=== PATIENT | female | born 1955 | race Caucasian/White ===

== ENCOUNTER 2016-07-15 10:52 | Emergency (ER) | payer OTHER ==
[~2016-07-15] VITALS: Ht 160 cm; Wt 68.0 kg
[2016-07-15] MEDS ORDERED: CARV-39 PO (11:36)
[2016-07-15] MEDS ORDERED: OLAN2.5T5 PO (11:36)
[2016-07-15] MEDS ORDERED: TRAZ100T15 PO (11:36)
[2016-07-15] MEDS ORDERED: VENL37.52 PO (11:36)
[2016-07-15] MEDS ORDERED: CLON-365 PO (11:36)
[2016-07-15] MEDS ORDERED: ASPI-496 PO (11:38)
[2016-07-15] MEDS ORDERED: ATOR40TA78 PO (11:38)
[2016-07-15 12:09] LABS: BLOOD UREA NITROGEN 8 mg/dL (7-18)
[2016-07-15 12:12] LABS: ASPARTATE AMINO TRANSFERASE 39 U/L (15-37)
[2016-07-15 12:43] VITALS: BP 127/82
== END 2016-07-15 12:46 | disposition home or self-care (01) ==
LOC: ED 12:40
DX: J15.9 Unspecified bacterial pneumonia (principal)
CPT/HCPCS: 36415; 71010; 80053; 85025

== ENCOUNTER 2016-07-20 13:31 | Emergency (ER) | payer OTHER ==
[~2016-07-20] VITALS: Ht 160 cm; Wt 66.0 kg
[~2016-07-20 13:31] MED LIST: ASPI-496 PO; ATOR40TA78 PO; CARV-39 PO; CLON-365 PO; OLAN2.5T5 PO; TRAZ100T15 PO; VENL37.52 PO
[2016-07-20 13:34] VITALS: BP_DIAS 84
[2016-07-20] MEDS ORDERED: LORazepam 1MG TABLET ONE (14:14)
[2016-07-20] MEDS ORDERED: PLEASE ENTER ALLERGIES MC SCH ×2 (14:30)
[2016-07-20] MEDS ORDERED: LORazepam 1MG TABLET PO ONE (14:30)
[2016-07-20 15:05] VITALS: BP_SYST 124
== END 2016-07-20 15:07 | disposition home or self-care (01) ==
LOC: ED 15:05
DX: F41.1 Generalized anxiety disorder (principal); F43.12 Post-traumatic stress disorder, chronic; F17.200 Nicotine dependence, unspecified, uncomplicated; X58.XXXA Exposure to other specified factors, initial encounter; Y93.89 Activity, other specified; Y92.89 Other specified places as the place of occurrence of the external cause; Y99.9 Unspecified external cause status
CPT/HCPCS: 99284

== ENCOUNTER 2016-08-17 17:56 | Emergency (ER) | payer OTHER ==
[~2016-08-17] VITALS: Ht 160 cm; Wt 65.0 kg
[~2016-08-17 17:56] MED LIST changes: +ATOR20TA9 PO; +OXYC1TAB9 PO; +QUET100T4 PO
[2016-08-17] MEDS ORDERED: DIAZEPAM 5 MG TABLET ONE (18:26)
[2016-08-17] MEDS ORDERED: KETOROLAC 30 MG/1 ML ONE (18:26)
[2016-08-17] MEDS ORDERED: KETOROLAC 60 MG/2 ML IM ONE (18:30)
[2016-08-17] MEDS ORDERED: KETOROLAC 30 MG/1 ML IM ONE (18:30)
[2016-08-17] MEDS ORDERED: DIAZEPAM 5 MG TABLET PO ONE (18:30)
[2016-08-17 18:41] VITALS: BP 124/74
== END 2016-08-17 19:14 | disposition home or self-care (01) ==
LOC: ED 18:18
DX: M94.0 Chondrocostal junction syndrome [Tietze] (principal); G44.201 Tension-type headache, unspecified, intractable; M54.2 Cervicalgia; I10 Essential (primary) hypertension; E78.5 Hyperlipidemia, unspecified; I25.10 Atherosclerotic heart disease of native coronary artery without angina pectoris; F17.200 Nicotine dependence, unspecified, uncomplicated
CPT/HCPCS: 96372; 99283; J1885

== ENCOUNTER 2016-08-22 20:48 | Emergency (ER) | payer OTHER ==
[~2016-08-22] VITALS: Ht 160 cm; Wt 68.0 kg
[2016-08-22] MEDS ORDERED: ZOLP10TA PO (21:06)
[2016-08-22] MEDS ORDERED: GABA300C10 PO (21:06)
[2016-08-22] MEDS ORDERED: OLAN20TA3 PO (21:06)
[2016-08-22] MEDS ORDERED: KETOROLAC 30 MG/1 ML IVPush ONE (21:30)
[2016-08-22] MEDS ORDERED: MORPHINE SULFATE 4 MG/ML, 1ML IVPush PRN (21:30)
[2016-08-22] MEDS ORDERED: DEXAMETHASONE 4 MG/ML, 1ML IVPush ONE (21:30)
[2016-08-22] MEDS ORDERED: METOCLOPRAMIDE 5 MG/ML, 2ML IVPush ONE (21:30)
[2016-08-22] MEDS ORDERED: DIPHENHYDRAMINE 50 MG/ML, 1ML IVPush ONE (21:30)
[2016-08-22] MEDS ORDERED: SODIUM CHLORIDE 0.9% 1,000ML IVBOLUS ONE (21:30)
[2016-08-22] MEDS ORDERED: KETOROLAC 30 MG/1 ML ONE ×2 (21:39→22:04)
[2016-08-22] MEDS ORDERED: METOCLOPRAMIDE 5 MG/ML, 2ML ONE (21:39)
[2016-08-22] MEDS ORDERED: DIPHENHYDRAMINE 50 MG/ML, 1ML ONE (21:39)
[2016-08-22] MEDS ORDERED: DEXAMETHASONE 4 MG/ML, 1ML ONE ×2 (21:39→21:47)
[2016-08-22] MEDS ORDERED: MORPHINE SULFATE 4 MG/ML, 1ML ONE (21:47)
[2016-08-22 23:05] VITALS: BP 159/97
== END 2016-08-22 23:06 | disposition home or self-care (01) ==
LOC: ED 21:51
DX: G43.019 Migraine without aura, intractable, without status migrainosus (principal); I25.2 Old myocardial infarction; I25.10 Atherosclerotic heart disease of native coronary artery without angina pectoris; I10 Essential (primary) hypertension
CPT/HCPCS: 36415; 84484; 93005; 96361; 96374; 96375; 99285; J1100; J1885; J2765; J7030

== ENCOUNTER 2016-11-23 15:25 | Emergency (ER) | payer OTHER, MEDICAID ==
[~2016-11-23] VITALS: Ht 160 cm; Wt 73.6 kg
[~2016-11-23 15:25] MED LIST changes: +GABA300C10 PO; +OLAN2.5T10 PO; -OLAN2.5T5 PO; +OLAN20TA3 PO; +ZOLP10TA PO
[2016-11-23 15:26] VITALS: BP 151/98
[2016-11-23] MEDS ORDERED: FLUORESCEIN OPHTHALMIC 1 MG STRIP ONE (15:41)
[2016-11-23] MEDS ORDERED: PROPARACAINE OPHTH 0.5%, 15ML ONE (15:41)
== END 2016-11-23 16:00 | disposition home or self-care (01) ==
LOC: ED 15:45
DX: S05.02XA Injury of conjunctiva and corneal abrasion without foreign body, left eye, initial encounter (principal); H15.002 Unspecified scleritis, left eye; I10 Essential (primary) hypertension; X58.XXXA Exposure to other specified factors, initial encounter; Y93.89 Activity, other specified; Y92.89 Other specified places as the place of occurrence of the external cause; Y99.9 Unspecified external cause status
CPT/HCPCS: 99283

== ENCOUNTER 2017-05-17 13:36 | Emergency (ER) | payer OTHER, MEDICAID ==
[~2017-05-17] VITALS: Ht 160 cm; Wt 78.9 kg
[2017-05-17 13:40] VITALS: BP 138/87
== END 2017-05-17 14:34 | disposition home or self-care (01) ==
LOC: ED 14:28
DX: G89.29 Other chronic pain (principal); M54.5 Low back pain; I10 Essential (primary) hypertension; I25.10 Atherosclerotic heart disease of native coronary artery without angina pectoris; F43.10 Post-traumatic stress disorder, unspecified; F17.200 Nicotine dependence, unspecified, uncomplicated; I25.2 Old myocardial infarction
CPT/HCPCS: 99283

== ENCOUNTER 2017-05-25 16:03 | Emergency (ER) | payer OTHER, MEDICAID ==
[~2017-05-25] VITALS: Ht 160 cm; Wt 80.0 kg
[2017-05-25 16:33] LABS: BASOPHILS # (AUTO) 0.04 x10^3/uL (0-0.1); BASOPHILS % (AUTO) 0 % (0-1); EOSINOPHILS # (AUTO) 0.42 x10^3/uL (0-0.4); EOSINOPHILS % (AUTO) 4 % (1-7); LYMPHOCYTES # (AUTO) 3.08 x10^3/uL (1-3.4); LYMPHOCYTES % (AUTO) 28 % (22-44); MD NO; MEAN CORPUSCULAR HEMOGLOBIN 31.8 pg (27.0-34.8); MEAN CORPUSCULAR HGB CONC 33.8 g/dL (32.4-35.8); MEAN CORPUSCULAR VOLUME 93.9 fL (80-100); MEAN PLATELET VOLUME 9.6 fL (7.4-10.4); MONOCYTES # (AUTO) 0.69 x10^3/uL (0.2-0.8); MONOCYTES % (AUTO) 6 % (2-9); NEUTROPHILS % (AUTO) 61 % (42-75); PLATELET COUNT 249 x10^3/uL (130-400); RED BLOOD COUNT 4.86 x10^6/uL (3.82-5.3); RED CELL DISTRIBUTION WIDTH 13.1 % (9.6-15.2)
[2017-05-25 16:45] LABS: ALBUMIN 3.4 g/dL (3.4-5.0); ANION GAP 5 mmol/L (5-15); CALCIUM 8.8 mg/dL (8.5-10.1); CHLORIDE 108 mmol/L (98-107); CREATININE 1.09 mg/dL (0.55-1.02)
[2017-05-25 16:49] LABS: TROPONIN I < 0.015 ng/mL (0.000-0.045)
[2017-05-25 18:30] VITALS: BP 124/82
== END 2017-05-25 18:44 | disposition home or self-care (01) ==
LOC: ED 18:10
DX: J20.8 Acute bronchitis due to other specified organisms (principal); I10 Essential (primary) hypertension; F43.10 Post-traumatic stress disorder, unspecified; E78.5 Hyperlipidemia, unspecified; I25.2 Old myocardial infarction; Z87.01 Personal history of pneumonia (recurrent)
CPT/HCPCS: 36415; 71046; 80048; 82040; 83605; 84484; 85025; 93005; 99285

== ENCOUNTER 2017-08-29 13:15 | Emergency (ER) | payer OTHER, MEDICAID ==
[~2017-08-29] VITALS: Ht 160 cm; Wt 78.6 kg
[~2017-08-29 13:15] MED LIST changes: +OLAN20TA7 PO
[2017-08-29 13:17] VITALS: BP 116/79
[2017-08-29] MEDS ORDERED: DIPH,PERTUSS(ACELL),TET VAC/PF 0.5 ML IM-VACC ONE ×2 (14:00→15:29)
[2017-08-29] MEDS ORDERED: BACITRACIN ZINC OINT 500U/GM, 0.9 GM ONE (14:08)
[2017-08-29] MEDS ORDERED: ACETAMINOPHEN 500 MG TABLET ONE (15:29)
[2017-08-29] MEDS ORDERED: ACETAMINOPHEN 500 MG TABLET PO ONE (15:30)
== END 2017-08-29 16:03 | disposition home or self-care (01) ==
LOC: ED 15:30
DX: S39.012A Strain of muscle, fascia and tendon of lower back, initial encounter (principal); S80.212A Abrasion, left knee, initial encounter; S80.211A Abrasion, right knee, initial encounter; W01.0XXA Fall on same level from slipping, tripping and stumbling without subsequent striking against object, initial encounter; Y93.89 Activity, other specified; Y92.009 Unspecified place in unspecified non-institutional (private) residence as the place of occurrence of the external cause; Y99.8 Other external cause status
CPT/HCPCS: 72110; 90471; 90715; 99284

== ENCOUNTER 2017-12-27 13:02 | Emergency (ER) | payer OTHER, MEDICAID ==
[~2017-12-27] VITALS: Ht 160 cm; Wt 79.0 kg
[~2017-12-27 13:02] MED LIST changes: -CLON-365 PO; +CLON1TAB11 PO; +OXYC-432 PO; -OXYC1TAB9 PO; +TRAZ-137 PO; -TRAZ100T15 PO
[2017-12-27] MEDS ORDERED: ALBUTEROL/IPRATROPIUM 2.5MG/0.5MG, 3 ML ONE (13:45)
[2017-12-27] MEDS ORDERED: ALBUTEROL/IPRATROPIUM 2.5MG/0.5MG, 3 ML NPPB ONE (14:00)
[2017-12-27 14:18] LABS: BASOPHILS # (AUTO) 0.01 x10^3/uL (0-0.1); BASOPHILS % (AUTO) 0 % (0-1); EOSINOPHILS % (AUTO) 2 % (1-7); LYMPHOCYTES # (AUTO) 1.08 x10^3/uL (1-3.4); LYMPHOCYTES % (AUTO) 11 % (22-44); MD NO; MEAN CORPUSCULAR HEMOGLOBIN 31.8 pg (27.0-34.8); MEAN CORPUSCULAR HGB CONC 33.9 g/dL (32.4-35.8); MEAN CORPUSCULAR VOLUME 93.9 fL (80-100); MEAN PLATELET VOLUME 10.4 fL (7.4-10.4); MONOCYTES # (AUTO) 0.64 x10^3/uL (0.2-0.8); MONOCYTES % (AUTO) 7 % (2-9); NEUTROPHILS # (AUTO) 7.78 x10^3/uL (1.8-6.8); NEUTROPHILS % (AUTO) 80 % (42-75); PLATELET COUNT 184 x10^3/uL (130-400); RED BLOOD COUNT 5.42 x10^6/uL (3.82-5.3); RED CELL DISTRIBUTION WIDTH 13.5 % (9.6-15.2)
[2017-12-27 14:26] LABS: ALBUMIN 3.8 g/dL (3.4-5.0); ANION GAP 7 mmol/L (5-15); CALCIUM 9.5 mg/dL (8.5-10.1); CHLORIDE 107 mmol/L (98-107)
[2017-12-27 14:29] LABS: D-DIMER 0.25 ug/mlFEU (0.00-0.52); INTERNATIONAL NORMALIZED RATIO 1.03 (0.93-1.1); PROTHROMBIN TIME 10.6 Seconds (9.6-11.5)
[2017-12-27 14:30] LABS: TROPONIN I < 0.015 ng/mL (0.000-0.045)
[2017-12-27 15:25] VITALS: BP 186/98
== END 2017-12-27 15:27 | disposition home or self-care (01) ==
LOC: ED 15:20
DX: J98.01 Acute bronchospasm (principal); J06.9 Acute upper respiratory infection, unspecified; F17.210 Nicotine dependence, cigarettes, uncomplicated; I10 Essential (primary) hypertension; E78.5 Hyperlipidemia, unspecified; I25.2 Old myocardial infarction; I25.10 Atherosclerotic heart disease of native coronary artery without angina pectoris; F43.10 Post-traumatic stress disorder, unspecified; R79.1 Abnormal coagulation profile
CPT/HCPCS: 36415; 71046; 80048; 82040; 83880; 84484; 85025; 85379; 85610; 85730; 93005; 94640; 99285; J7620

== ENCOUNTER 2018-01-01 22:02 | Emergency (ER) | payer OTHER, MEDICAID ==
[~2018-01-01] VITALS: Ht 160 cm; Wt 78.0 kg
[2018-01-01 22:58] LABS: BASOPHILS # (AUTO) 0.05 x10^3/uL (0-0.1); BASOPHILS % (AUTO) 1 % (0-1); EOSINOPHILS # (AUTO) 0.35 x10^3/uL (0-0.4); EOSINOPHILS % (AUTO) 3 % (1-7); LYMPHOCYTES # (AUTO) 3.76 x10^3/uL (1-3.4); LYMPHOCYTES % (AUTO) 36 % (22-44); MD NO; MEAN CORPUSCULAR HEMOGLOBIN 32.2 pg (27.0-34.8); MEAN CORPUSCULAR HGB CONC 33.8 g/dL (32.4-35.8); MEAN CORPUSCULAR VOLUME 95.1 fL (80-100); MONOCYTES % (AUTO) 8 % (2-9); NEUTROPHILS # (AUTO) 5.51 x10^3/uL (1.8-6.8); NEUTROPHILS % (AUTO) 53 % (42-75); PLATELET COUNT 217 x10^3/uL (130-400); RED BLOOD COUNT 4.92 x10^6/uL (3.82-5.3); RED CELL DISTRIBUTION WIDTH 13.9 % (9.6-15.2)
[2018-01-01] MEDS ORDERED: SODIUM CHLORIDE FLUSH 10ML SYR IVF ONE (23:00)
[2018-01-01 23:07] LABS: ALANINE AMINOTRANSFERASE 37 U/L (12-78); ALBUMIN 3.2 g/dL (3.4-5.0); ANION GAP 10 mmol/L (5-15); CALCIUM 8.6 mg/dL (8.5-10.1); CHLORIDE 108 mmol/L (98-107); CREATININE 0.94 mg/dL (0.55-1.02)
[2018-01-01 23:11] LABS: ALKALINE PHOSPHATASE 145 U/L (45-117); BILIRUBIN,TOTAL 0.2 mg/dL (0.2-1.0); TOTAL PROTEIN 7.4 g/dL (6.4-8.2); TROPONIN I < 0.015 ng/mL (0.000-0.045)
[2018-01-02 01:16] VITALS: BP 109/62
== END 2018-01-02 01:19 | disposition home or self-care (01) ==
LOC: ED 23:24
DX: T65.91XA Toxic effect of unspecified substance, accidental (unintentional), initial encounter (principal); J44.9 Chronic obstructive pulmonary disease, unspecified; G43.909 Migraine, unspecified, not intractable, without status migrainosus; E78.5 Hyperlipidemia, unspecified; I25.2 Old myocardial infarction; I10 Essential (primary) hypertension; I25.10 Atherosclerotic heart disease of native coronary artery without angina pectoris; F17.210 Nicotine dependence, cigarettes, uncomplicated; Y92.9 Unspecified place or not applicable
CPT/HCPCS: 36415; 71045; 80053; 82962; 83880; 84484; 85025; 93005; 99285

== ENCOUNTER 2018-01-28 02:25 | Emergency (ER) | payer OTHER, MEDICAID ==
[~2018-01-28] VITALS: Ht 160 cm; Wt 80.0 kg
[2018-01-28] MEDS ORDERED: ALBUTEROL/IPRATROPIUM 2.5MG/0.5MG, 3 ML ONE (02:38)
[2018-01-28] MEDS ORDERED: ALBUTEROL/IPRATROPIUM 2.5MG/0.5MG, 3 ML NPPB ONE (03:00)
[2018-01-28 03:26] LABS: ALBUMIN 3.1 g/dL (3.4-5.0); ANION GAP 7 mmol/L (5-15); CALCIUM 8.4 mg/dL (8.5-10.1); CHLORIDE 111 mmol/L (98-107); CREATININE 0.79 mg/dL (0.55-1.02)
[2018-01-28 03:30] LABS: TROPONIN I < 0.015 ng/mL (0.000-0.045)
[2018-01-28 03:32] LABS: BASOPHILS # (AUTO) 0.03 x10^3/uL (0-0.1); BASOPHILS % (AUTO) 0 % (0-1); EOSINOPHILS % (AUTO) 4 % (1-7); LYMPHOCYTES % (AUTO) 30 % (22-44); MD NO; MEAN CORPUSCULAR HEMOGLOBIN 32.5 pg (27.0-34.8); MEAN CORPUSCULAR HGB CONC 34.4 g/dL (32.4-35.8); MEAN CORPUSCULAR VOLUME 94.3 fL (80-100); MEAN PLATELET VOLUME 10.4 fL (7.4-10.4); MONOCYTES # (AUTO) 0.69 x10^3/uL (0.2-0.8); MONOCYTES % (AUTO) 7 % (2-9); NEUTROPHILS # (AUTO) 5.92 x10^3/uL (1.8-6.8); NEUTROPHILS % (AUTO) 59 % (42-75); PLATELET COUNT 203 x10^3/uL (130-400); RED BLOOD COUNT 5.15 x10^6/uL (3.82-5.3); RED CELL DISTRIBUTION WIDTH 13.9 % (9.6-15.2)
[2018-01-28 04:36] VITALS: BP 158/67
== END 2018-01-28 04:48 | disposition home or self-care (01) ==
LOC: ED 03:44
DX: J44.1 Chronic obstructive pulmonary disease with (acute) exacerbation (principal); I10 Essential (primary) hypertension; I25.2 Old myocardial infarction; F41.9 Anxiety disorder, unspecified; E78.5 Hyperlipidemia, unspecified; I25.10 Atherosclerotic heart disease of native coronary artery without angina pectoris; G44.209 Tension-type headache, unspecified, not intractable; F43.10 Post-traumatic stress disorder, unspecified; F17.200 Nicotine dependence, unspecified, uncomplicated; F12.10 Cannabis abuse, uncomplicated; Z95.2 Presence of prosthetic heart valve; Z87.01 Personal history of pneumonia (recurrent)
CPT/HCPCS: 36415; 71046; 80048; 82040; 84484; 85025; 93005; 94640; 99285; J7512; J7620

== ENCOUNTER 2018-02-26 13:48 | Emergency (ER) | payer OTHER, MEDICAID ==
[~2018-02-26] VITALS: Ht 160 cm; Wt 77.3 kg
[~2018-02-26 13:48] MED LIST changes: +ATOR20TA37 PO; -ATOR20TA9 PO
[2018-02-26 14:19] VITALS: BP 116/80
[2018-02-26] MEDS ORDERED: CARBAMIDE PEROXIDE EAR DROPS 6.5%, 15ML LEFT EAR ONE (14:30)
[2018-02-26] MEDS ORDERED: CARBAMIDE PEROXIDE EAR DROPS 6.5%, 15ML ONE (14:32)
== END 2018-02-26 15:21 | disposition home or self-care (01) ==
LOC: ED 15:03
DX: H61.22 Impacted cerumen, left ear (principal); I25.10 Atherosclerotic heart disease of native coronary artery without angina pectoris; I10 Essential (primary) hypertension; J44.9 Chronic obstructive pulmonary disease, unspecified; E78.5 Hyperlipidemia, unspecified; I25.2 Old myocardial infarction; Z79.899 Other long term (current) drug therapy; Z88.8 Allergy status to other drugs, medicaments and biological substances; F17.200 Nicotine dependence, unspecified, uncomplicated
CPT/HCPCS: 99282

== ENCOUNTER 2018-04-23 18:12 | Emergency (ER) | payer MEDICARE, MEDICAID ==
[~2018-04-23] VITALS: Ht 160 cm; Wt 73.8 kg
[2018-04-23 18:17] VITALS: BP 144/88
[2018-04-23] MEDS ORDERED: ONDANSETRON ODT 4 MG PO ONE (20:30)
[2018-04-23] MEDS ORDERED: OXYcodone/APAP 5/325MG TABLET PO ONE (20:30)
[2018-04-23] MEDS ORDERED: OXYcodone/APAP 5/325MG TABLET ONE (20:37)
[2018-04-23] MEDS ORDERED: CYCLOBENZAPRINE 10 MG TABLET ONE (20:37)
[2018-04-23] MEDS ORDERED: ONDANSETRON ODT 4 MG ONE (20:38)
[2018-04-23] MEDS ORDERED: CYCLOBENZAPRINE 10 MG TABLET PO STA (20:42)
== END 2018-04-23 20:52 | disposition home or self-care (01) ==
LOC: ED 20:29
DX: S39.012A Strain of muscle, fascia and tendon of lower back, initial encounter (principal); S80.02XA Contusion of left knee, initial encounter; I25.10 Atherosclerotic heart disease of native coronary artery without angina pectoris; I10 Essential (primary) hypertension; J44.9 Chronic obstructive pulmonary disease, unspecified; F43.10 Post-traumatic stress disorder, unspecified; F41.1 Generalized anxiety disorder; W01.0XXA Fall on same level from slipping, tripping and stumbling without subsequent striking against object, initial encounter; Y93.01 Activity, walking, marching and hiking; Y93.89 Activity, other specified; Y92.89 Other specified places as the place of occurrence of the external cause; Y99.8 Other external cause status
CPT/HCPCS: 72072; 72110; 99283; Q0162

== ENCOUNTER 2018-04-29 21:20 | Emergency (ER) | payer OTHER, MEDICAID ==
[~2018-04-29] VITALS: Ht 165.1 cm; Wt 73.0 kg
[2018-04-29 21:34] VITALS: BP 116/69
[2018-04-29] MEDS ORDERED: CYCLOBENZAPRINE 10 MG TABLET PO ONE (22:38)
[2018-04-29] MEDS ORDERED: OXYcodone/APAP 5/325MG TABLET ONE (22:46)
[2018-04-29] MEDS ORDERED: CYCLOBENZAPRINE 10 MG TABLET ONE (22:46)
--- NOTE | 2018-04-29 22:48 | NUR ---
PT IN CHAIR IN ROOM. PT MEDICATED PER MAR. CALL LIGHT IS WITHIN REACH.
[2018-04-29] MEDS ORDERED: OXYcodone/APAP 5/325MG TABLET PO ONE (23:00)
--- NOTE | 2018-04-29 23:54 | NUR ---
pt d/c with d/c summary and scripts. all questions answered. pt ambulated to registration desk with steady gait home and denies any other needs pertaining to this visit.
== END 2018-04-29 23:56 | disposition home or self-care (01) ==
LOC: ED 23:50
DX: S39.012A Strain of muscle, fascia and tendon of lower back, initial encounter (principal); G89.29 Other chronic pain; J44.9 Chronic obstructive pulmonary disease, unspecified; E78.5 Hyperlipidemia, unspecified; I10 Essential (primary) hypertension; I25.2 Old myocardial infarction; F41.1 Generalized anxiety disorder; I25.10 Atherosclerotic heart disease of native coronary artery without angina pectoris; G43.909 Migraine, unspecified, not intractable, without status migrainosus; G44.209 Tension-type headache, unspecified, not intractable; Z86.59 Personal history of other mental and behavioral disorders; W19.XXXA Unspecified fall, initial encounter; Y93.89 Activity, other specified; Y92.89 Other specified places as the place of occurrence of the external cause; Y99.8 Other external cause status
CPT/HCPCS: 99283

== ENCOUNTER → 2018-05-11 | Outpatient (CLI) | payer OTHER, MEDICAID ==
[~2018-05-11] MED LIST changes: +REGADENOSON 0.4 MG/5 ML SYRINGE ONE
== END | disposition home or self-care (01) ==
LOC: CFH 08:58
PROVIDERS: ATTEND Internal Medicine Cardiovascular Disease
DX: I10 Essential (primary) hypertension (principal); I25.2 Old myocardial infarction
CPT/HCPCS: 78452; 93017; A9502; J2785

== ENCOUNTER 2019-05-23 11:47 | Emergency (ER) | payer OTHER, MEDICAID ==
[~2019-05-23] VITALS: Ht 160 cm; Wt 76.0 kg
[~2019-05-23 11:47] MED LIST changes: +OLAN20TA14 PO; -OLAN20TA7 PO; +QUET50TA5 PO; -REGADENOSON 0.4 MG/5 ML SYRINGE ONE; +TIZANIDINE; -TRAZ-137 PO; +TRAZ-175 PO
[2019-05-23 12:19] LABS: BASOPHILS # (AUTO) 0.03 x10^3/uL (0-0.1); BASOPHILS % (AUTO) 0 % (0-1); EOSINOPHILS # (AUTO) 0.28 x10^3/uL (0-0.4); EOSINOPHILS % (AUTO) 3 % (1-7); LYMPHOCYTES # (AUTO) 2.65 x10^3/uL (1-3.4); LYMPHOCYTES % (AUTO) 23 % (22-44); MD NO; MEAN CORPUSCULAR HEMOGLOBIN 30.6 pg (27.0-34.8); MEAN CORPUSCULAR HGB CONC 33.9 g/dL (32.4-35.8); MEAN CORPUSCULAR VOLUME 90.2 fL (80-100); MEAN PLATELET VOLUME 8.7 fL (7.4-10.4); MONOCYTES # (AUTO) 0.64 x10^3/uL (0.2-0.8); MONOCYTES % (AUTO) 6 % (2-9); NEUTROPHILS # (AUTO) 7.86 x10^3/uL (1.8-6.8); NEUTROPHILS % (AUTO) 69 % (42-75); PLATELET COUNT 247 x10^3/uL (130-400); RED BLOOD COUNT 4.87 x10^6/uL (3.82-5.3); RED CELL DISTRIBUTION WIDTH 12.1 % (9.6-15.2)
[2019-05-23 12:32] LABS: ALANINE AMINOTRANSFERASE 58 U/L (12-78); ALBUMIN 3.2 g/dL (3.4-5.0); ANION GAP 8 mmol/L (5-15); CALCIUM 8.9 mg/dL (8.5-10.1); CHLORIDE 113 mmol/L (98-107); CREATININE 0.94 mg/dL (0.55-1.02)
[2019-05-23 12:37] LABS: ALKALINE PHOSPHATASE 137 U/L (45-117); BILIRUBIN,TOTAL 0.3 mg/dL (0.2-1.0); TOTAL PROTEIN 7.1 g/dL (6.4-8.2); TROPONIN I < 0.015 ng/mL (0.000-0.045)
[2019-05-23] MEDS ORDERED: SODIUM CHLORIDE 0.9% 1,000ML IVBOLUS ONE (13:00)
[2019-05-23] MEDS ORDERED: SODIUM CHLORIDE FLUSH 10ML SYR IVF ONE (13:00)
--- NOTE | 2019-05-23 15:00 | NUR ---
RECEIVED REPORT FROM EDWARD MONAHAN, PLAN OF CARE DISCUSSED.
[2019-05-23] MEDS ORDERED: FUROSEMIDE 20 MG/2 ML ONE (15:29)
[2019-05-23 17:17] VITALS: BP 175/88
--- NOTE | 2019-05-23 17:17 | NUR ---
Patient/Caregiver given discharge instructions and they have confirmed that they understand the instructions. Patient ambulatory with steady gait.
== END 2019-05-23 17:19 | disposition home or self-care (01) ==
LOC: ED 12:47
DX: R55 Syncope and collapse (principal); E86.9 Volume depletion, unspecified; E86.1 Hypovolemia; E11.9 Type 2 diabetes mellitus without complications
CPT/HCPCS: 36415; 71045; 80053; 83880; 84484; 85025; 93005; 96360; 99285; J7030

== ENCOUNTER 2019-07-19 15:29 | Emergency (ER) | payer OTHER ==
[~2019-07-19] VITALS: Ht 160 cm; Wt 78.5 kg
[2019-07-19] MEDS ORDERED: HYDR50TA99 PO (15:47)
[2019-07-19] MEDS ORDERED: TERA5CAP3 PO (15:47)
[2019-07-19] MEDS ORDERED: TIZA4TAB2 PO (15:47)
--- NOTE | 2019-07-19 16:26 | NUR ---
REPORT RECEIVED FROM GLENN MONAHAN. PT RESTING ON [employer] CONNECTED TO MONITORING.
[2019-07-19 17:02] VITALS: BP 146/77
--- NOTE | 2019-07-19 17:06 | NUR ---
ORTHOSTATIC VS DONE. IN ROOM.
--- NOTE | 2019-07-19 17:31 | NUR ---
Patient given discharge instructions and they have confirmed that they understand the instructions. Patient ambulatory with steady gait, provided taxi voucher.
== END 2019-07-19 17:33 | disposition home or self-care (01) ==
LOC: ED 16:38
DX: R55 Syncope and collapse (principal); I10 Essential (primary) hypertension; Z87.891 Personal history of nicotine dependence
CPT/HCPCS: 93005; 99283